=== PATIENT | female | born 1940 | race Caucasian/White ===

== ENCOUNTER → 2018-02-01 | Outpatient (CLI) | payer MEDICARE, BC ==
[2018-02-01 11:30] LABS: CREATININE 0.88 mg/dl (0.44-1.00)
[2018-02-01 11:30] LABS: BLOOD UREA NITROGEN 23 mg/dl (7-20)
== END | disposition home or self-care (01) ==
LOC: VAS 08:00
DX: I70.213 Atherosclerosis of native arteries of extremities with intermittent claudication, bilateral legs (principal)
CPT/HCPCS: 82565; 84520; 93922